=== PATIENT | male | born 1965 | race African-American/Black ===

== ENCOUNTER 2023-04-26 10:46 | Emergency (ER) | payer OTHER ==
[2023-04-26] MEDS ORDERED: Morphine 2 MG/ML VIAL ONE (11:06)
[2023-04-26 11:13] LABS: #Eosinphils 0.1 thou/uL (0.0-0.7); #Monocytes 0.5 thou/uL (0.11-0.59); #Neutrophils 8.4 thou/uL (1.40-6.50); %Basophils 0.4 % (0.0-1.0); %Eosinophils 0.6 % (0.0-10.0); %Lymphocytes 8.2 % (21.0-51.0); %Monocytes 4.8 % (0.0-10.0); %Neutrophils 85.3 % (42.0-75.0); Hematocrit 19.9 % (42.0-52.0); Hemoglobin 6.6 g/dL (14.0-18.0); Mean Corpuscular HGB CONC 33.2 g/dL (32.0-36.0); Mean Corpuscular Hemoglobin 30.7 pg (27.0-31.0); Mean Corpuscular Volume 92.6 fl (78.0-98.0); Platelet Count 309 10x3/uL (130-400); RBC Distribution Width 12.5 % (11.5-14.5); Red Blood Cell (RBC) Count 2.15 mill/uL (4.70-6.10); White Blood Cell (WBC) Count 9.8 10x3/uL (4.8-10.8)
[2023-04-26 11:31] LABS: ALT (SGPT) 9 U/L (8-55); AST (SGOT) 15 U/L (5-34); Albumin 3.7 g/dL (3.5-5.0); Alkaline Phosphatase 92 U/L (40-110); Anion Gap 29 mmol/L (10-20); Bilirubin, Total 0.5 mg/dL (0.2-1.2); Calc. Creatinine Clearance 0 mL/min (70-130); Carbon Dioxide 10 mmol/L (22-29); Chloride 103 mmol/L (98-107); Estimated GFR 3; Globulin 3.1 g/dL (2.4-3.5); Glucose 81 mg/dL (70-105); Lipase 52 U/L (8-78); Protein, Total 6.8 g/dL (6.0-8.3); Sodium 135 mmol/L (136-145)
[2023-04-26 11:47] LABS: BUN (Urea Nitrogen) 169 mg/dL (8.4-25.7)
[2023-04-26 11:52] LABS: Calcium 6.5 mg/dL (7.8-10.44); Potassium 7.2 mmol/L (3.5-5.1)
[2023-04-26] MEDS ORDERED: CALCIUM GLUC 1 GM/NS 50 ML BAG ONE (12:06)
[2023-04-26] MEDS ORDERED: Insulin Regular 300 UNITS/3 ML VIAL ONE (12:07)
[2023-04-26] MEDS ORDERED: Sodium Bicarb 50 MEQ/50 ML VIAL IVP SCH (12:30)
[2023-04-26] MEDS ORDERED: Dextrose 50% Abboject 50 ML SYRINGE SLOW IVP SCH (12:30)
[2023-04-26] MEDS ORDERED: Dextrose 10% in Water 250 ML ONE (12:32)
[2023-04-26 14:54] LABS: Bilirubin Negative (Negative); Blood, Urine 3+ (Negative); CAUTI Indications for Culture Pelvic or flank pain; Clarity Turbid (Clear); Glucose, Urine (Dipstick) Normal (Negative); Ketone, Urine Negative (Negative); Leukocyte 500 Leu/uL (Negative); Nitrite Negative (Negative); Protein, Urine (Dipstick) 200 mg/dL (Neg-Trace); RBC/HPF Greater than 50 HPF (0-3); Specific Gravity, Urine 1.008 (1.002-1.036); Squamous Epithelial 0-3 HPF (0-3); Urobilinogen Normal mg/dL (Less than 2)
[2023-04-26 14:59] LABS: Sperm/HPF Rare HPF (None Seen)
[2023-04-26 15:01] LABS: Bacteria/HPF 2+ HPF (None Seen)
[2023-04-26 15:03] LABS: Urine Culture Reflex Yes Yes
== END 2023-04-26 15:50 ==
LOC: ERS 10:46 → EEVIPCON 10:46 → ERS 15:50
DX: E87.5 Hyperkalemia (principal); E11.40 Type 2 diabetes mellitus with diabetic neuropathy, unspecified; I13.0 Hypertensive heart and chronic kidney disease with heart failure and stage 1 through stage 4 chronic kidney disease, or unspecified chronic kidney disease; E11.22 Type 2 diabetes mellitus with diabetic chronic kidney disease; N18.6 End stage renal disease; I50.9 Heart failure, unspecified; C79.9 Secondary malignant neoplasm of unspecified site; G40.909 Epilepsy, unspecified, not intractable, without status epilepticus; Z79.899 Other long term (current) drug therapy; Z79.4 Long term (current) use of insulin
CPT/HCPCS: 36415; 51702; 74176; 80053; 81001; 83690; 83880; 85025; 86850; 86900; 86901; 87086; 93005; 96365; 96375; J0613; J1815; J2272; J7999